=== PATIENT | male | born 1950 | race Caucasian/White ===

== ENCOUNTER 2021-11-29 13:47 | Inpatient (IN) | payer OTHER ==
[~2021-11-29] VITALS: Ht 177.8 cm; Wt 69.4 kg
[2021-11-29 14:41] LABS: BASOPHILS ABSOLUTE AUTO 0.07 K/mm3 (0.00-0.23); BASOPHILS PERCENT AUTO 0 % (0-2); EOSINOPHILS ABSOLUTE AUTO 0.01 K/mm3 (0.00-0.68); EOSINOPHILS PERCENT AUTO 0 % (0-6); Hematocrit 48.5 % (37.0-53.0); Hemoglobin 15.7 g/dL (13.5-17.5); IMMATURE GRAN ABSOLUTE AUTO 0.46 K/mm3 (0.00-0.10); IMMATURE GRAN PERCENT AUTO 2 % (0-1); LYMPHOCYTES ABSOLUTE AUTO 0.63 K/mm3 (0.84-5.20); LYMPHOCYTES PERCENT AUTO 3 % (21-46); MONOCYTES ABSOLUTE AUTO 1.07 K/mm3 (0.16-1.47); MONOCYTES PERCENT AUTO 6 % (4-13); Mean Corpuscular HGB 31.8 pg (26.0-34.0); Mean Corpuscular HGB Conc 32.4 g/dL (31.5-36.5); Mean Corpuscular Volume 98 fL (80-100); NEUTROPHILS PERCENT AUTO 88 % (41-73); Platelet Count 205 K/mm3 (150-400); RDW Coefficient Variation 13.1 % (11.7-14.2); RDW Standard Deviation 47.4 fL (35.1-46.3); Red Blood Cell Count 4.93 M/mm3 (4.30-5.90); White Blood Cell Count 18.94 K/mm3 (4.00-11.30)
[2021-11-29 14:43] LABS: Mean Platelet Volume 13.1 fL (9.1-12.4)
[2021-11-29 15:07] LABS: Creatine Kinase MB 85.4 ng/mL (0.0-3.6); Magnesium, Blood 4.5 mg/dL (1.6-2.4)
[2021-11-29 15:13] LABS: Ethanol (Alcohol), Blood, Med <3 mg/dL
[2021-11-29 15:29] LABS: Creatine Kinase MB Index 2.2 (0.0-4.0)
[2021-11-29 15:30] LABS: Albumin, Blood 3.2 g/dL (3.4-5.0); Albumin/Globulin Ratio 0.9 (0.8-1.8); Bilirubin, Total 0.6 mg/dL (0.1-1.0); Bun/Creatinine Ratio 27.5 (12.0-20.0); Globulin, Blood 3.6 g/dL (2.2-4.0); Total Protein, Blood 6.8 g/dL (6.4-8.2)
[2021-11-29 15:32] LABS: Base Excess Venous -22.9 mmol/L; Bicarbonate Venous 9.1 mmol/L (24.0-30.0); PCO2 Venous 32.8 mmHg (38-42); pH Blood Venous 7.01 (7.34-7.37)
[2021-11-29 15:44] LABS: International Normalized Ratio 1.07; Prothrombin Time Results 11.2 Sec (9.7-11.5)
[2021-11-29 17:02] LABS: Source, Urine Foley catheter
[2021-11-29 17:05] LABS: Appearance, Urine Clear (Clear); Bilirubin, Urine Neg (Neg); Blood, Urine 5+ (Neg); Color, Urine Yellow (P-Yellow); Glucose Qualitative, Urine 4+ (Neg); Ketones, Urine 3+ (Neg); Leukocyte Esterase, Urine Neg (Neg); Nitrite, Urine Neg (Neg); Protein, Urine Neg (Neg); Specific Gravity, Urine 1.015 (1.003-1.022); Urobilinogen, Urine NORM (Normal)
[2021-11-29 17:13] LABS: White Blood Cells, Urine 0-2 /hpf (0-5)
[2021-11-29 17:14] LABS: Bacteria Few /hpf; Hyaline Casts 0-2 /lpf (0-2); Red Blood Cells, Urine 0-2 /hpf (0-2); Squamous Epithelial Cells Not Seen /hpf (Few)
[2021-11-29 17:19] LABS: U Amphetamine Screen Not Detected; U Barbituate Screen Not Detected; U Benzodiazapine Screen Not Detected; U Buprenorphine Screen Not Detected; U Cannabinoids Screen Not Detected; U Cocaine Screen Not Detected; U Methadone Screen Not Detected; U Methamphetamine Screen Not Detected; U Opiates Screen Not Detected; U Oxycodone Screen Not Detected; U Phencyclidine Screen Not Detected; U Propoxyphene Screen Not Detected
[2021-11-29 18:43] LABS: Bun/Creatinine Ratio 27.9 (12.0-20.0); Calcium, Blood 8.3 mg/dL (8.5-10.1); Creatinine, Blood 3.69 mg/dL (0.60-1.20)
--- NOTE | 2021-11-29 18:50 | NUR ---
PT ARRIVED FROM ER AT 1735. TEMP 93.1, BEAR HUGGER APPLIED, MIDLINE PLACED IN LUE, ONE AMP BICARB PUSH GIVEN THEN FOLLOWED BY GTT, INSULIN RUNNING AT 7.33, NS STARTED AT 200ML/HR. PT UNRESPONSIVE TO VERBAL STIMULI, NOT OPENING EYES TO PAIN, PUPILS EQUAL BUT SLUGGISH. PT IS ONLY MAKING PURPOSEFUL MOVEMENTS WITH RUE. PT MOUTH IS DRY WITH CRUSTED BLOOD. RN WAS ABLE TO COLLAPSE ARTERIES WITH ULTRASOUND TRANSDUCER WITH LITTLE EFFORT. HR 130'S-140'S
--- NOTE | 2021-11-29 19:15 | NUR ---
ASSUMED CARE OF PT @0700. PT UNRESPONSIVE TO VERBAL STIMULI. GRIMACES DURING ASSESSMENT. SAGE HUGGER IN PLACE. NS 200MLS/HR. INSULIN 9 UNITS/HR. SODIUM BICARB 125MLS/HR. LOZANO CATH PATENT AND DRAINING TO GRAVITY. HR 140'S AFIB RHYTHM. RR 33, SPO2 >94% ON RA.
[2021-11-29 20:44] LABS: Glucose, Blood 743 mg/dL (70-99)
--- NOTE | 2021-11-29 21:22 | NUR ---
ATTEMPTED TO CALL SPOUSE WILLY. NO ANSWER AND CALL WAS SENT TO [employer] ANSWERING MACHINE. DID NOT LEAVE MESSAGE.
[2021-11-29 21:47] LABS: Bun/Creatinine Ratio 30.2 (12.0-20.0); Calcium, Blood 7.6 mg/dL (8.5-10.1); Creatinine, Blood 3.51 mg/dL (0.60-1.20); Potassium, Blood 3.6 mmol/L (3.5-5.5)
[2021-11-30 00:16] LABS: Bun/Creatinine Ratio 30.4 (12.0-20.0); Calcium, Blood 7.7 mg/dL (8.5-10.1); Creatinine, Blood 3.39 mg/dL (0.60-1.20); Potassium, Blood 3.7 mmol/L (3.5-5.5)
--- NOTE | 2021-11-30 01:25 | NUR ---
PT DESATING INTO THE 80'S, O2 4L VIA NC STARTED.
[2021-11-30 02:44] LABS: Base Excess Venous -1.4 mmol/L; Bicarbonate Venous 22.4 mmol/L (24.0-30.0); PCO2 Venous 42.7 mmHg (38-42); pH Blood Venous 7.36 (7.34-7.37)
--- NOTE | 2021-11-30 03:54 | NUR ---
PHONE CALL TO SPOUSE WILLY REGARDING PT CONDITION. NO ANSWER AND CALL SENT TO [employer] ANSWERING MACHINE. DID NOT LEAVE MESSAGE.
[2021-11-30 04:59] LABS: Hematocrit 36.2 % (37.0-53.0); Hemoglobin 12.7 g/dL (13.5-17.5); Mean Corpuscular HGB 31.1 pg (26.0-34.0); Mean Corpuscular HGB Conc 35.1 g/dL (31.5-36.5); Platelet Count 135 K/mm3 (150-400); RDW Coefficient Variation 12.6 % (11.7-14.2); RDW Standard Deviation 40.9 fL (35.1-46.3); Red Blood Cell Count 4.09 M/mm3 (4.30-5.90); White Blood Cell Count 1.55 K/mm3 (4.00-11.30)
[2021-11-30 05:19] LABS: Magnesium, Blood 2.7 mg/dL (1.6-2.4); Mean Corpuscular Volume 89 fL (80-100); Phosphorus, Blood 3.5 mg/dL (2.5-4.9)
[2021-11-30 06:00] LABS: BAND PERCENT MAN 28 % (0-8); BASOPHILS PERCENT MAN 0 % (0-2); EOSINOPHILS PERCENT MAN 0 % (0-6); LYMPHOCYTES ABSOLUTE MAN 0.12 K/mm3 (0.84-5.20); LYMPHOCYTES PERCENT MAN 8 % (21-46); METAMYELOCYTE ABSOLUTE MAN 0.03 K/mm3 (0.00-0.00); METAMYELOCYTE PERCENT MAN 2 % (0-0); MONOCYTES ABSOLUTE MAN 0.09 K/mm3 (0.16-1.47); MONOCYTES PERCENT MAN 6 % (4-13); MYELOCYTE ABSOLUTE MAN 0.03 K/mm3 (0.00-0.00); MYELOCYTE PERCENT MAN 2 % (0-0); NEUTROPHILS ABSOLUTE MAN 1.27 K/mm3 (1.96-9.15); SEG NEUTROPHILS PERCENT MAN 54 % (41-73); TOTAL CELLS COUNTED 50
[2021-11-30 06:18] LABS: Albumin/Globulin Ratio 0.8 (0.8-1.8); Bilirubin, Total 0.4 mg/dL (0.1-1.0); Bun/Creatinine Ratio 30.4 (12.0-20.0); Calcium, Blood 7.3 mg/dL (8.5-10.1); Creatinine, Blood 3.22 mg/dL (0.60-1.20); Globulin, Blood 2.6 g/dL (2.2-4.0); Potassium, Blood 4.1 mmol/L (3.5-5.5)
[2021-11-30 06:20] LABS: Total Protein, Blood 4.6 g/dL (6.4-8.2)
--- NOTE | 2021-11-30 07:43 | NUR ---
CARE OF PT ASSUMED AT 0700. PT IMMEDIATELY ASSESSED. PT MINIMALLY RESPONSIVE, DOES OPEN EYES TO VOICE, DOES NOT FOLLOW COMMANDS, VERY SOMNOLENT. LABORED BREATHING, RATE 40-50'S ON BIPAP. SATS AROUND 90% ON 90% FIO2. PT HYPOTENSIVE W MAP <60 ON 8MCG LEVOPHED. LEVOPHED TITRATED UP TO 20MCG OVER 30MIN TO KEEP MAP >65. DR DOMINIQUE CALLED AND UPDATED. CONSULT PLACED FOR CRITICAL CARE. DR ANN CALLED AND UPDATED. NS BOLUS STARTED, ALBUMIN AND VASOPRESSIN ORDERED. RT NOTIFED.
--- NOTE | 2021-11-30 09:40 | NUR ---
DR ANN AT BEDSIDE SOON AFTER CONSULT CALLED. PT INTUBATED AT 0759, ETT 8.0/25CM. RSI KIT USED. PT SEDATED WITH 4MG VERSED FOLLOWED BY PROPOFOL 60MG BY DR ANN AT 0757. AFTER INTUBATION PT ASYNCHRON. W VENT; ATIVAN 2MG AND FENT 100MCG ORDERED BY DR ANN AND PULLED ON OVERRIDE. VENT SETTINGS: 20/400/5/100%. OGT PLACED. CENTRAL LINE TO LEFT SC PLACED BY DR ANN W 3CM EXPOSED. CHEST XRAY TAKEN, ETT, OGT, AND CL VARIFIED BY DR ANN. PT REQUIRED UP TO 30MCG LEVOPHED TO KEEP MAP >65. VASOPRESSIN STARTED WELL ALBUMIN. 2L NS BOLUS GIVEN, TO BE FOLLOWED BY 3RD LITER. LEVOPHED NOW AT 12MCG, PROPOFOL AT 50MCG. DR DOMINIQUE AT BEDISDE AFTER INTUBATION AND GIVEN UPDATE. PT'S WILLY AT BEDSIDE AFTER INTUBATION AND GIVEN FULL UPDATE. PT GIVEN FULL BEDBATH, SKIN ASSESSED. PICTURES TAKEN OF BRUISE TO LEFT HIP AND FLANK AREA. SKIN OVERALL INTACT.
[2021-11-30 10:52] LABS: PCO2 Arterial 27.2 mmHg (35-45); PO2 Arterial 90.6 mmHg (80-100); pH Blood Arterial 7.35 (7.35-7.45)
--- NOTE | 2021-11-30 11:00 | NUR ---
UPDATE DR ANN GIVEN UPDATE. FOURTH NS BOLUS AND 25 ALBUMIN ORDERED. ABG'S RETURNED AND VENTILATOR SETTINGS WILL STAY.
[2021-11-30 12:22] LABS: Calcium, Blood 6.9 mg/dL (8.5-10.1); Creatinine, Blood 3.07 mg/dL (0.60-1.20); Potassium, Blood 4.2 mmol/L (3.5-5.5)
--- NOTE | 2021-11-30 13:03 | NUR ---
UPDATE 2MG OF ATIVAN GIVEN D/T TACHYPNEA (RATE 35'S~) AND INCREASED WORK OF BREATHING. PT RR IS NOW IN THE 20'S AND WORK OF BREATHING HAS GONE DOWN.
[2021-11-30 15:45] LABS: Influenza A, PCR NEGATIVE (NEGATIVE); Influenza B, PCR NEGATIVE (NEGATIVE); Resp Syncytial Virus, PCR NEGATIVE (NEGATIVE); SARS-Cov-2 (COVID-19) PCR, MMC NEGATIVE (NEGATIVE)
[2021-11-30 18:15] LABS: Calcium, Blood 6.8 mg/dL (8.5-10.1); Creatinine, Blood 2.66 mg/dL (0.60-1.20); Potassium, Blood 4.4 mmol/L (3.5-5.5)
--- NOTE | 2021-11-30 18:35 | NUR ---
SHIFT SUMMARY PT IS CURRENTLY INTUBATED AND SEDATED ON 50 OF PROPOFOL. LEVOPHED AT 6;VASOPRESSIN AT 0.04; BICARB PER ORDER. MAP IS >65 WITH OCCASIONAL DIPS BELOW 65 FOR THE FIRST HALF OF THE SHIFT WHILE ATTEMPTING TO MANAGE HIS BLOOD PRESSURE. WHILE ASSUMING CARE HE HAD A MAP OF 52; 5L NS BOLUS, 2 25MG OF ALBUMIN, AND PRESSORS TO MANAGE BLOOD PRESSURE. 2MG OF ATIVAN WAS USED TWICE TODAY TO HELP WITH RATE CONTROL HE WAS TACHYPNEIC FOR MOST OF THE MORNING. AFTER GETTING HIS MAP UP; HE HAD STOOL COMING OUT EVERY 2 HOURS THAT WAS PART LIQUID/HARD REGINA. RECTAL TUBE WAS PLACED.
--- NOTE | 2021-11-30 19:15 | NUR ---
ASSUMPTION OF CARE PT IS INTUBATED AND SEDATED. HE IS RECEIVING PROPOFOL 40MCG/KG/MIN, LEVOPHED 6MCG/MIN, VASOPRESSIN, AND BICARB 125ML/HR. VENT SETTINGS AC/VC 20/400/8/100%. RR 20-28. LUNGS CLEAR THROUGHOUT. OGT CLAMPED. BOWEL TONES HYPOACTIVE. RECTAL TUBE IN PLACE DRAINING SMALL AMOUNT OF LIQUID STOOL. LOZANO PATENT AND DRAINING DARK YELLOW URINE WITH SEDIMENT TO GRAVITY. SEE SHIFT ASSESSMENT.
[2021-12-01 00:49] LABS: Bun/Creatinine Ratio 35.5 (12.0-20.0); Calcium, Blood 6.5 mg/dL (8.5-10.1); Creatinine, Blood 2.34 mg/dL (0.60-1.20); Potassium, Blood 4.5 mmol/L (3.5-5.5)
--- NOTE | 2021-12-01 05:13 | NUR ---
SHIFT SUMMARY PT REMAINS INTUBATED WITH VENT SETTINGS AC/VC 20/400/8/50%. HE IS RECEIVING PROPOFOL 50MCG/KG/MIN, LEVOPHED 5MCG/MIN, VASOPRESSIN AND BICARB. NO ACUTE CHANGES OVER NIGHT. OGT CLAMPED. BOWEL TONES HYPOACTIVE. RECTAL TUBE HAS MINIMAL OUTPUT. LOZANO PATENT AND DRAINING TO GRAVITY. TITRATING LEVOPHED TO MAINTAIN MAP >65. WILL REPORT TO ONCOMING RN.
[2021-12-01 05:40] LABS: Hematocrit 29.5 % (37.0-53.0); Hemoglobin 10.5 g/dL (13.5-17.5); Mean Corpuscular HGB 32.4 pg (26.0-34.0); Mean Corpuscular HGB Conc 35.6 g/dL (31.5-36.5); Mean Corpuscular Volume 91 fL (80-100); Mean Platelet Volume 12.5 fL (9.1-12.4); Platelet Count 66 K/mm3 (150-400); RDW Coefficient Variation 13.7 % (11.7-14.2); RDW Standard Deviation 45.8 fL (35.1-46.3); Red Blood Cell Count 3.24 M/mm3 (4.30-5.90); White Blood Cell Count 8.61 K/mm3 (4.00-11.30)
[2021-12-01 06:25] LABS: Albumin/Globulin Ratio 0.8 (0.8-1.8); Bilirubin, Total 0.6 mg/dL (0.1-1.0); Bun/Creatinine Ratio 36.6 (12.0-20.0); Calcium, Blood 6.5 mg/dL (8.5-10.1); Creatinine, Blood 2.16 mg/dL (0.60-1.20); Globulin, Blood 2.4 g/dL (2.2-4.0); Phosphorus, Blood 3.4 mg/dL (2.5-4.9); Potassium, Blood 4.3 mmol/L (3.5-5.5); Total Protein, Blood 4.4 g/dL (6.4-8.2)
[2021-12-01 07:34] LABS: BAND PERCENT MAN 39 % (0-8); BASOPHILS PERCENT MAN 0 % (0-2); EOSINOPHILS PERCENT MAN 0 % (0-6); LYMPHOCYTES ABSOLUTE MAN 0.25 K/mm3 (0.84-5.20); LYMPHOCYTES PERCENT MAN 3 % (21-46); METAMYELOCYTE ABSOLUTE MAN 0.34 K/mm3 (0.00-0.00); METAMYELOCYTE PERCENT MAN 4 % (0-0); MONOCYTES ABSOLUTE MAN 0.25 K/mm3 (0.16-1.47); MONOCYTES PERCENT MAN 3 % (4-13); MYELOCYTE ABSOLUTE MAN 0.25 K/mm3 (0.00-0.00); MYELOCYTE PERCENT MAN 3 % (0-0); NEUTROPHILS ABSOLUTE MAN 7.49 K/mm3 (1.96-9.15); SEG NEUTROPHILS PERCENT MAN 48 % (41-73); TOTAL CELLS COUNTED 100
--- NOTE | 2021-12-01 08:15 | NUR ---
ASSUMED CARE PT INTUBATED ON /10/50% W/ SPO2 >92%; RR IN THE 20'S. PT WAS TAKEN OFF VASOPRESSIN LAST NIGHT AND IS TOLERATING 5MCG LEVOPHED; MAP >65 WITH 2 DIPS DOWN TO 60. BOWEL TONES REMAIN ABSENT WITH WEAK RADIAL PULSES AND STRONG PEDAL PULSES. PROPOFOL RUNNING AT 50MCG; BICARB AT 125ML.
--- NOTE | 2021-12-01 13:03 | NUR ---
PROPOFOL ON STANDBY, PT COUGHING ON VENT, ATTEMPTS TO OPEN EYES TO COMMAND. VERY WEAKLY CLAY DRY PRESS OPERATOR EACH HAND TO COMMAND. WIGGLES TOES TO COMMAND. UNABLE TO NOD HEAD TO QUESTIONS. PT GRIMACING. PROPOFOL RESTARTED AT 25MCG.
--- NOTE | 2021-12-01 13:56 | NUR ---
UPDATE IN ROOM AND HAD QUESTIONS ABOUT AN ADVANCED DIRECTIVE. NOTIFIED PALLIATIVE CARE, WHO WILL HAVE CONVERSATION WITH . SAID TO CALL HER ON CELL PHONE IF SHE LEAVES AND THAT SHE WILL LIKELY BE BACK WHEN THE SON COMES TO VISIT [facility]CTOR.
--- NOTE | 2021-12-01 14:22 | NUR ---
UPDATE IGNACIO WITH PALLIATIVE CARE IN TO TALK TO AND POLST WAS MADE W/ VERBAL APPROVAL WITH DR ANN. PT MADE DNR.
--- NOTE | 2021-12-01 14:34 | NUR ---
CHANGE in code status to DNR, per 's request. Visit made to bedside to meet with at her request for Palliative care to review and complete an advanced directive for her . Pt is currently intubated and unresponsive, unable to communicate. He was intubated by EMS either in the home or enroute to ER after being found down by . He is believed to have had aspirated emesis at home. I noted nonverbal indicators of discomfort, with frowning/furrowing of brow, grimacing. educated on nonverbal s/s to report if noted, ie increased restlessness, grimacing. educated on types advanced directives vs POLST for EMS. Explained that AD is an instrument to be filled out by someone who is alert, oriented & able to communicate/document their wishes. I offered to complete a POLST form with her if she would like, which she did. After review of advanced life support interventions and advanced care planning considerations we completed a POLST together. Pt has a hx of dementia, poor health and poor quality of life for some time now per . They have been for 20 years and as far as she knows he has not completed an advanced directive previously. I reviewed [place] statutes and our policy regarding proxy decision makers in the absence of an appointed, documented medical POA. states pt's son will be here tonight and she would like someone to review pt's current clinical status with him also. I told her our nurses or providers would be able to do that. states that her would probably not have chosen to be intubated and requests that if pt is able to be extubated that he not be reintubated. She requests that we not do CPR or attempt rescuscitation of any kind if his heart were to stop. She is waiting for pt's son to arrive to make any further decisions regarding the goals of care. She is clear that if pt is not able to regain respiratory or neurological function that pt will not be kept on life support. She has already discussed withdrawl of care with son but wants son to get full update on status and options before the two of them discuss this further. Report on my visit provided to pt's nurses and Dr Daley. VO obtained for DNR and entered. Planned with to f/u with her tomorrow.
--- NOTE | 2021-12-01 17:28 | NUR ---
SHIFT SUMMARY PT IN BED INTUBATED WITH PROPOFOL GTT @ 25MCGS; LEVOPHED @ 5MCG; BICARB+WATER @ 125MLS. MAP >65, SPO2 >92% ON 20/400/10/50%. WENT ON SEDATION VACATION AND WAS ABLE TO FOLLOW COMMANDS (SEE PT NOTE) WITH NATALIA BROWN. PRESSURES HAVE BEEN LABILE WITH LEVOPHED TITRATION, BUT HAVE MAINTAINED >65 WITH 3-5 DIPS DOWN TO 60-65 EARLY ON IN SHIFT WHEN VASOPRESSIN WAS FIRST TAKEN OFF AND LEVO TITRATED DOWN. HR IN THE 90S. FAMILY IN ROOM W/ PT AND HAS BEEN CONSULTED BY PALLIATIVE CARE. POLST WAS CREATED AND VERBAL ORDER FROM DR ANN TO MAKE PT DNR. LOZANO AND RECTAL TUBE PATENT AND DRAINING TO GRAVITY.
--- NOTE | 2021-12-01 19:15 | NUR ---
ASSUMPTION OF CARE PT REMAINS INTUBATED WITH VENT SETTINGS AC/VC+ 20/400/10/50%. HE IS RECEIVING PROPOFOL 25MCG/KG/MIN, LEVOPHED 5MCG/MIN AND BICARB 125ML/HR. OGT REMAINS CLAMPED. PENDING DIETARY CONSULT. BOWEL TONES HYPOACTIVE. RECTAL TUBE IN PLACE WITH SMALL AMOUNT OF DRAINAGE IN TUBE. LOZANO PATENT AND DRAINING UBALDO URINE WITH SEDIMENT. SEE SHIFT ASSESSMENT.
[2021-12-02 04:45] LABS: Hematocrit 29.4 % (37.0-53.0); Hemoglobin 10.2 g/dL (13.5-17.5); Mean Corpuscular HGB 31.6 pg (26.0-34.0); Mean Corpuscular HGB Conc 34.7 g/dL (31.5-36.5); Mean Corpuscular Volume 91 fL (80-100); Mean Platelet Volume 12.8 fL (9.1-12.4); RDW Standard Deviation 46.5 fL (35.1-46.3); Red Blood Cell Count 3.23 M/mm3 (4.30-5.90); White Blood Cell Count 8.75 K/mm3 (4.00-11.30)
[2021-12-02 05:02] LABS: Platelet Count 44 K/mm3 (150-400)
--- NOTE | 2021-12-02 05:25 | NUR ---
SHIFT SUMMARY PT REMAINS INTUBATED WITH VENT SETTINGS AC/VC+ 20/400/10/60%. HE IS RECEIVING PROPOFOL 25MCG/KG/MIN AND BICARB 125ML/HR. LEVOPHED CURRENTLY ON STANDBY WITH MAP >65. PT GRIMACES WITH NOXIOUS STIMULI, OCCASIONALLY OPENS EYES DURING CARE. EXTREMITIES WITHDRAW FROM PAINFUL STIMULI. NSR ON MONITOR WITH RATE 70S-80S. OGT REMAINS CLAMPED. ABDOMEN FIRM, BOWEL TONES HYPOACTIVE. RECTAL TUBE REMOVED THIS SHIFT DUE TO LACK OF OUTPUT. LOZANO PATENT AND DRAINING UBALDO URINE WITH SEDIMENT TO GRAVITY. SHIFT OUTPUT OF 1300ML. TMAX 100.3. POWERGLIDE REMAINS IN JERROD, CENTRAL LINE REMAINS L SUBCLAVIAN. WILL REPORT TO ONCOMING RN.
[2021-12-02 05:42] LABS: Albumin, Blood 1.7 g/dL (3.4-5.0); Anion Gap 7 mmol/L (6-16); Blood Urea Nitrogen 58 mg/dL (8-24); Bun/Creatinine Ratio 41.7 (12.0-20.0); CO2, Blood 32 mmol/L (21-32); CPK Creatine Kinase 2133 U/L (39-308); Calcium, Blood 7.4 mg/dL (8.5-10.1); Chloride, Blood 113 mmol/L (98-108); Creatinine, Blood 1.39 mg/dL (0.60-1.20); Glomerular Filtration Rate 54 (60-); Glucose, Blood 227 mg/dL (70-99); Phosphorus, Blood 2.2 mg/dL (2.5-4.9); Potassium, Blood 3.6 mmol/L (3.5-5.5); Sodium, Blood 152 mmol/L (136-145)
[2021-12-02 06:43] LABS: BAND PERCENT MAN 9 % (0-8); BASOPHILS PERCENT MAN 0 % (0-2); EOSINOPHILS PERCENT MAN 0 % (0-6); LYMPHOCYTES ABSOLUTE MAN 0.43 K/mm3 (0.84-5.20); LYMPHOCYTES PERCENT MAN 5 % (21-46); METAMYELOCYTE ABSOLUTE MAN 0.26 K/mm3 (0.00-0.00); METAMYELOCYTE PERCENT MAN 3 % (0-0); MONOCYTES ABSOLUTE MAN 0.08 K/mm3 (0.16-1.47); MONOCYTES PERCENT MAN 1 % (4-13); MYELOCYTE ABSOLUTE MAN 0.08 K/mm3 (0.00-0.00); MYELOCYTE PERCENT MAN 1 % (0-0); NEUTROPHILS ABSOLUTE MAN 7.87 K/mm3 (1.96-9.15); SEG NEUTROPHILS PERCENT MAN 81 % (41-73); TOTAL CELLS COUNTED 100
--- NOTE | 2021-12-02 07:00 | NUR ---
ASSUME CARE: I have assumed care of this patient.
--- NOTE | 2021-12-02 09:11 | NUR ---
FAMILY UPDATE: pt called and provided with update. She states she will be in later to visit.
--- NOTE | 2021-12-02 10:30 | NUR ---
Pt remains ventilated. He is unresponsive to voice or touch during visit. arrived while I was in the room. She said pt's son was able to speak with staff and Drs yesterday and get a good update. IDT meeting attended. Pt's kidney function improving. Clinical status Stable. Dr to start tube feedings today. Pt was able to follow commands with sedation vacation per RN progress notes. EMR reviewed. Will Follow up to be sure POLST was signed by and get copy to medical records today.
[2021-12-02 16:31] LABS: Bun/Creatinine Ratio 38.3 (12.0-20.0); Calcium, Blood 8.4 mg/dL (8.5-10.1); Creatinine, Blood 1.41 mg/dL (0.60-1.20); Potassium, Blood 3.5 mmol/L (3.5-5.5)
--- NOTE | 2021-12-02 16:43 | NUR ---
Pt's fully signed POLST sent to medical records for scanning into his EMR. has original completed yesterday.
--- NOTE | 2021-12-02 19:08 | NUR ---
SHIFT SUMMARY: NEURO: sedation vacation performed this AM. Pt did open his eyes; pupils PERRLA. RN unable to elicit movement from extremities prior to having to restart sedation for respiratory status. Pt grimaces and shruggs to painful stimuli. RESPIRATORY: coarse breath sounds on RLL. current vent settings AC/VC 400/20/10/70%. CARDIAC: sinus rhythm on monitor. Attempted to wean off levophed several times unsuccessfully. Levo currently at 2. GI/: tube feeds started at 25 mg/hr at 1600. pt required insulin coverage at 1800. No BM. Espinosa patent and draining to gravity. UOP 4875 mls. Fluid balance -2016. PSYCH/SOCIAL: and son at bedside throughout the day
--- NOTE | 2021-12-02 20:00 | NUR ---
ASSESSMENT/ASSUMED CARE PT INTUBATED AND ON KETTERING [facility] PREBLE VENT. SEDATED WITH PROPOFOL. LUNGS CLEAR BUT DECREASED IN THE BASES. VENT SETTING AC/VC 20/400/10/70%. SUCTIONED SMALL AMT WHITE THIN SECRECTIONS VIA ET TUBE. HEART RATE REGULAR IN THE 80'S. PT ON LEVOPHED AT 2 MCQ/MIN TO KEEP MAP GREATER THAN 65. INCREASED LEVOPHED TO 4 MCQ/MIN. CENTRAL LINE TO LEFT SUBCLAVIAN SITE CLEAR, DRSG INTACT. NS AT 10 ML/HR, LEVOPHED AT 4 MCQ/MIN AND PROPOFOL 25 MCQ/KG/MIN. POWER GLIDE TO LEFT UPPER ARM. SITE CLEAR AND DRSG INTACT. BT+ HYPOACTIVE. OG WITH TUBE FEED PIVOT 1.5 AT 25 ML/HR AND WATER 200 ML Q4HR. RESIDUAL 20 ML YELLOW SECRECTIONS REFED. LOZANO CATH PATENT DRAINING DARK YELLOW URINE. BILAT SOFT WRIST RESTRAINTS ON. PT INCONT OF STOOL. KONSTANTIN CARE DONE AND PT REPOSITIONED. ORAL CARE DONE.
--- NOTE | 2021-12-03 02:30 | NUR ---
TEMP TEMP UP TO 100.3. MED WITH TYLENOL AND ICE PACKS APPLIED. BED BATH DONE.
[2021-12-03 04:00] LABS: Hematocrit 31.2 % (37.0-53.0); Hemoglobin 10.5 g/dL (13.5-17.5); Mean Corpuscular HGB 30.9 pg (26.0-34.0); Mean Corpuscular HGB Conc 33.7 g/dL (31.5-36.5); Mean Corpuscular Volume 92 fL (80-100); RDW Coefficient Variation 13.7 % (11.7-14.2); RDW Standard Deviation 46.1 fL (35.1-46.3); White Blood Cell Count 2.08 K/mm3 (4.00-11.30)
[2021-12-03 04:06] LABS: Mean Platelet Volume 13.1 fL (9.1-12.4)
[2021-12-03 04:07] LABS: Platelet Count 37 K/mm3 (150-400)
[2021-12-03 04:35] LABS: Calcium, Blood 8.3 mg/dL (8.5-10.1); Creatinine, Blood 1.45 mg/dL (0.60-1.20); Phosphorus, Blood 2.4 mg/dL (2.5-4.9); Potassium, Blood 2.7 mmol/L (3.5-5.5)
--- NOTE | 2021-12-03 04:45 | NUR ---
LABS TALKED WITH DR PATEL REGARDING AM LABS, ORDER FOR KPHOS 30MMOL RECEIVED
--- NOTE | 2021-12-03 05:52 | NUR ---
BLOOD GLUCOSE CBG 425, 10 UNITS REGULAR INSULIN GIVEN. CALLED TO DR PATEL. ORDER TO INCREASE SLIDING SCALE INSULIN TO HIGH.
--- NOTE | 2021-12-03 06:11 | NUR ---
SHIFT SUMMARY PT CONT INTUBATED AND ON MECH VENT. NO VENT CHANGES DURING THE NIGHT. VENT SETTINGS AC/VC 20/400/10/70%. PT RECEIVING LASIX 80 MG IV Q8HR X3 DOSES. LUNGS COARSE BUT NO CRACKLES NOW. HEART RATE SINUS IN THE 70-80'S. PT ON LEVOPHED TITRATING TO KEEP MAP GREATER THAN 65, CURRENTLY LEVOPHED AT 4 MCQ/MIN. BT+ HYPOACTIVE. PT HAVING LOOSE INCONT STOOLS. OG WITH TUBE FEED PIVOT 1.5 AT GOAL RATE OF 40 ML/HR WITH WATER 200 ML Q4HR. LOZANO CATH PATENT DRAINING CLEAR YELLOW URINE. CENTRAL LINE TO LEFT SUBCLAVIAN DRSG INTACT, SITE CLEAR. POWER GLIDE TO LEFT UPPER ARM DRSG INTACT AND SITE CLEAR. KPHOS 30 MMOL INFUSING. INCREASED SLIDING SCALE INSULIN TO HIGH. BILAT SOFT WRIST RESTRAINTS ON. REPORT TO ON COMING NURSE
--- NOTE | 2021-12-03 07:30 | NUR ---
ASSUMED CARE: PT INTUBATED AND SEDATED. SEDATED WITH PROPOFOL AT 25MCG/KG/MIN. LEVOPHED GTT RUNNING AT 4MCG/KG. VENT SETTINGS AC 20/400/10/65%. CURRENTLY NSR AT 86. OG WITH TF AT GOAL. LOZANO CATH DRAINING CLEAR YELLOW URINE. NO ACUTE NEEDS AT THIS TIME.
--- NOTE | 2021-12-03 08:00 | NUR ---
ATTEMPTED SEDATION VACATION WITH PROPOFOL OFF. PT GRIMACED WITH NOXIOUS STIMULI, INCLUDING TRAPEZIUS SQUEEZE. NO PURPOSEFUL MOVEMENT. PROPOFOL RESTARTED WHEN PT STARTED STACKING BREATHS ON VENT.
--- NOTE | 2021-12-03 12:00 | NUR ---
PT CONTINUED TO HAVE AIR LEAK,. DR HARMON INSTRUCTED FOR TUBE EXCHANGE AND NEW XRAY TO CONFIRM PLACEMENT. TASK COMPLETED WITH RT ASSIST
[2021-12-03 14:20] LABS: Albumin, Blood 1.5 g/dL (3.4-5.0); Anion Gap 8 mmol/L (6-16); Blood Urea Nitrogen 59 mg/dL (8-24); Bun/Creatinine Ratio 42.8 (12.0-20.0); CO2, Blood 36 mmol/L (21-32); Calcium, Blood 8.5 mg/dL (8.5-10.1); Chloride, Blood 98 mmol/L (98-108); Creatinine, Blood 1.38 mg/dL (0.60-1.20); Glomerular Filtration Rate 54 (60-); Glucose, Blood 484 mg/dL (70-99); Potassium, Blood 3.7 mmol/L (3.5-5.5); Sodium, Blood 142 mmol/L (136-145)
--- NOTE | 2021-12-03 14:31 | NUR ---
PT'S CBGS CONTINUE TO BE ELEVATED. DISCUSSED WITH DR HARMON. SEE NEW ORDERS.
--- NOTE | 2021-12-03 18:05 | NUR ---
SHIFT SUMMARY: PT REMAINS ON VENT, AC 20/410/10/70%. ETT CHANGED DUE TO CUFF LEAKING. CUFF HAS SEEMED TO HAVE LEAKED ONCE SINCE CHANGING. DISCUSSED WITH RT. KARISED PER ORDERS TODAY WITH GOOD OUTPUT. REMAINS ON 25 MCG/KG OF PROPOFOL. NSR IN THE 70S. NO ACUTE NEEDS AT THIS TIME.
--- NOTE | 2021-12-03 18:52 | NUR ---
DR HARMON CAME TO BEDSIDE TO DO CARDIAC ULTRASOUND TO DETERMINE IF PT MAY HAVE PE DUE TO DIURESING WITH IMPROVEMENT TO XRAY BUT NOT O2 SATURATION. AFTER PERFORMING THIS, PT BEGAN STACKING BREATHS. DR INSTRUCTED FOR PRN MARCIA TO HELP WITH VENT COMPLIANCE AND STATED THAT PROPOFOL CAN BE INCREASED. PROPOFOL INCREASED TO 35MCG/KG AT THIS TIME.
--- NOTE | 2021-12-03 19:00 | NUR ---
ASSUMPTION OF CARE PT REMAINS INTUBATED WITH VENT SETTINGS AC/VC+ 20/560/12/70%. HE IS RECEIVING PROPOFOL 45MCG/KG/MIN AND LEVOPHED 5MCG/MIN. TUBE FEEDING INFUSING VIA OGT AT GOAL RATE. NSR ON MONITOR WITH RATE 80S. LOZANO PATENT AND DRAINING CLEAR/YELLOW URINE. SEE SHIFT ASSESSMENT.
--- NOTE | 2021-12-04 02:16 | NUR ---
UPDATE 1944: CORE TEMP 100.5. ICE PACKS PLACED AND TYLENOL ADMINISTERED PER EMAR. 2200: ICE PACKS REPLACED WITH NEW ICE. CORE TEMP 100.6. 0030: ICE PACKS REPLACED WITH NEW ICE. COOLING BLANKET IN PLACE. CORE TEMP 101.0 0130: CORE TEMP 101.9. ADMINISTERED 2ND DOSE OF TYLENOL PER EMAR. 0200: HOSPITALIST NOTIFIED. ORDER RECEIVED FOR IBUPROFEN AND ASPIRIN. HOSPITALIST AWARE OF PLATELET VALUE. PLAN TO DRAW BLOOD CULTURES.
--- NOTE | 2021-12-04 02:51 | NUR ---
SEDATION VACATION PROPOFOL ON STANBY FOR APPROX 6 HOURS. PT TOLERATED WELL. OCCASIONAL COUGH BUT COMPLIANT WITH VENT. PT ABLE TO OPEN EYES TO VERBAL STIMULI. HE DOES NOT TRACK MOVEMENTS. LIMBS REMAIN UNRESPONSIVE TO PAINFUL STIMULI. HR INCREASING TO 100S-110S. SEDATION RESTARTED. PROPOFOL INFUSING AT 45MCG/KG/MIN. WILL TITRATE DOWN PT TOLERATES.
[2021-12-04 04:36] LABS: Bun/Creatinine Ratio 42.8 (12.0-20.0); Calcium, Blood 8.9 mg/dL (8.5-10.1); Creatinine, Blood 1.52 mg/dL (0.60-1.20); Magnesium, Blood 1.8 mg/dL (1.6-2.4); Phosphorus, Blood 2.7 mg/dL (2.5-4.9); Potassium, Blood 2.6 mmol/L (3.5-5.5)
--- NOTE | 2021-12-04 06:10 | NUR ---
SHIFT SUMMARY PT REMAINS INTUBATED WITH VENT SETTINGS AC/VC+20/560/12/60%. HE IS RECEIVING LEVOPHED 7MCG/MIN. PROPOFOL ON STANDBY SINCE 0. PT IS ABLE TO OPEN EYES TO VERBAL STIMULI BUT DOES NOT FOLLOW ANY COMMANDS. LIMBS REMAIN UNRESPONSIVE TO PAINFUL STIMULI. HR 80S, NSR ON MONITOR. PIVOT INFUSING VIA OGT AT GOAL RATE WITH MINIMAL RESIDUALS THROUGHOUT SHIFT. ABDOMEN SOFT, BOWEL TONES ACTIVE. 1 SMALL UNFORMED STOOL THIS SHIFT. LOZANO PATENT AND DRAINING TO GRAVITY WITH SHIFT OUTPUT OF 2100ML. CBGS >350 THIS SHIFT, HOSPITALIST NOTIFIED. TMAX 101.9. CURRENT CORE TEMP 100.1. SUPPLEMENTAL KCL INFUSING AT THIS TIME. WILL REPORT TO ONCOMING RN.
--- NOTE | 2021-12-04 10:21 | NUR ---
ASSUMED CARE PT IS INTUBATED ON /12/60% WITH SPO2 >92%. MAP>65. PROPOFOL ON STANDBY, LEVOPHED AT 5MCG. PIVOT @ 40MLS W/ 200ML FLUSH Q4H. PT IS TOLERATING PROPOFOL ON STANBY AND IS VENTILATOR COMPLIANT WITH NO COUGHING/GAGGING. HYPOACTIVE BOWEL TONES. PT TEMP IS 100.7 PER LOZANO TEMP. LOZANO CATHETER DRAINING TO GRAVITY.
--- NOTE | 2021-12-04 11:41 | NUR ---
DR ODELL IN TO SEE PT, FULL UPDATE GIVEN. PLAN: KEEP PROPOFOL OFF FOR NOW, ALEXSANDER BY PT, DR ODELL WILL EVALUATE NEED FOR FREE WATER IT IS AT 200CC Q4HRS. DR ODELL DECREASED PEEP TO 8 AND FIO2 TO 50%. RT NOTIFIED. PT'S GIVEN UPDATE OVER PHONE.
[2021-12-04 16:05] LABS: Hematocrit 32.1 % (37.0-53.0); Hemoglobin 11.2 g/dL (13.5-17.5); Mean Corpuscular HGB 31.5 pg (26.0-34.0); Mean Corpuscular HGB Conc 34.9 g/dL (31.5-36.5); Mean Corpuscular Volume 90 fL (80-100); Platelet Count 58 K/mm3 (150-400); RDW Coefficient Variation 13.4 % (11.7-14.2); RDW Standard Deviation 44.6 fL (35.1-46.3); Red Blood Cell Count 3.56 M/mm3 (4.30-5.90); White Blood Cell Count 8.47 K/mm3 (4.00-11.30)
[2021-12-04 16:16] LABS: Bun/Creatinine Ratio 44.7 (12.0-20.0); Calcium, Blood 9.4 mg/dL (8.5-10.1); Creatinine, Blood 1.61 mg/dL (0.60-1.20); Magnesium, Blood 2.1 mg/dL (1.6-2.4); Phosphorus, Blood 1.6 mg/dL (2.5-4.9); Potassium, Blood 2.9 mmol/L (3.5-5.5)
[2021-12-04 17:48] LABS: BAND PERCENT MAN 2 % (0-8); BASOPHILS PERCENT MAN 0 % (0-2); EOSINOPHILS ABSOLUTE MAN 0.16 K/mm3 (0.00-0.68); EOSINOPHILS PERCENT MAN 2 % (0-6); LYMPHOCYTES ABSOLUTE MAN 0.76 K/mm3 (0.84-5.20); LYMPHOCYTES PERCENT MAN 9 % (21-46); MONOCYTES ABSOLUTE MAN 0.76 K/mm3 (0.16-1.47); MONOCYTES PERCENT MAN 9 % (4-13); NEUTROPHILS ABSOLUTE MAN 6.77 K/mm3 (1.96-9.15); SEG NEUTROPHILS PERCENT MAN 78 % (41-73); TOTAL CELLS COUNTED 100
--- NOTE | 2021-12-04 18:02 | NUR ---
SHIFT SUMMARY PT INTUBATED AND OFF SEDATION ON /5/50% WITH SPO2 >92%; MAP >65 ON 6MCG OF LEVOPHED. HR 90-100'S . PROPOFOL HAS BEEN OFF ALL DAY W/ NO ISSUES. T-MAX IS 101.8; 650MG OF TYLENOL AND ICE PACKS APPLIED. POWER GLIDE WAS PULLED D/T ISSUES W/ DRESSING CHANGE. CBG HAS BEEN IN THE 300'S. PT DOES NOT TRACK WITH EYES, BUT WILL OPEN/BLINK AND TURN HEAD TO VOICE. PT ALSO SQUEEZED FINGERS UPON REQUEST ONCE TODAY. LOZANO DRAINING TO GRAVITY.
--- NOTE | 2021-12-04 19:15 | NUR ---
ASSUMPTION OF CARE BEDSIDE REPORT RECEIVED FROM NATALIA RN AND TAMIKO RN. PT REMAINS INTUBATED WITH VENT SETTINGS AC/VC+ 20/560/5/50%. HE IS RECEIVING LEVOPHED 6MCG/MIN TO MAINTAIN MAP >65. PT OPENS EYES TO VERBAL STIMULI. OCCASIONALLY TURNS HEAD TOWARD MOVEMENT OR SOUND BUT DOES NOT TRACK MOVEMENTS TO COMMAND. FACIAL GRIMACING WITH NOXIOUS STIMULI. LIMBS ARE FLACCID, ONLY FACIAL GRIMACING TO PAINFUL STIMULI. LUNGS CLEAR IN UPPER LOBES, DIMINISHED AND COARSE IN BASES. COMPLIANT WITH VENT WITHOUT SEDATION. NSR ON MONITOR WITH RATE 80S-90S. TUBE FEEDING INFUSING VIA OGT AT GOAL RATE WITH FREE WATER FLUSHES. BOWEL TONES ACTIVE. LOZANO PATENT AND DRAINING CLOUDY YELLOW URINE TO GRAVITY. CORE TEMP 101.3. ICE PACKS AND FAN IN PLACE. SEE SHIFT ASSESSMENT.
[2021-12-05 04:27] LABS: Bun/Creatinine Ratio 53.7 (12.0-20.0); Calcium, Blood 8.1 mg/dL (8.5-10.1); Creatinine, Blood 1.34 mg/dL (0.60-1.20); Phosphorus, Blood 2.4 mg/dL (2.5-4.9); Potassium, Blood 3.1 mmol/L (3.5-5.5)
--- NOTE | 2021-12-05 04:53 | NUR ---
SHIFT SUMMARY PT REMAINS INTUBATED WITH VENT SETTINGS AC/VC+ 20/560/5/70%. LUNGS COARSE THROUGHOUT, DIMINISHED IN BASES. VENT COMPLIANT WITHOUT SEDATION. PT OPENS EYES SPONTANEOUSLY. OCCASIONAL HEAD MOVEMENTS TO TURN TOWARD VERBAL STIMULI. PT DOES NOT TRACK MOVEMENTS WITH EYES. PT WAS ABLE TO LIGHTLY SQUEEZE BILAT HANDS DURING MOST RECENT ASSESSMENT. UNABLE TO WIGGLE TOES. LOWER EXTREMITIES UNRESPONSIVE TO PAINFUL STIMULI. LEVOPHED INFUSING AT 4MCG/MIN TO MAINTAIN MAP >65. NSR ON MONITOR WITH RATE IN 80S. PIVOT TF INFUSING AT GOAL RATE WITH FREE WATER FLUSHES. BOWEL TONES ACTIVE, 1 MEDIUM UNFORMED BM THIS SHIFT. LOZANO PATENT AND DRAINING DARK YELLOW URINE TO GRAVITY WITH SHIFT OUTPUT OF 1550ML. CENTRAL LINE REMAINS IN PLACE. HOSPITALIST NOTIFIED OF AM LABS. PLAN TO INFUSE KCL. WILL REPORT TO ONCOMING RN.
[2021-12-05 05:17] LABS: PCO2 Arterial 30.5 mmHg (35-45); PO2 Arterial 50.9 mmHg (80-100)
[2021-12-05 05:18] LABS: pH Blood Arterial 7.64 (7.35-7.45)
--- NOTE | 2021-12-05 08:37 | NUR ---
ASSUMED CARE PT INTUBATED ON 450/5/70% W/ SPO2 >92%. MAP >65 ON 3MCG OF LEVOPHED. PROPOFOL ON SB. PIVOT @ 20MLS/HR AND 200ML FREE WATER FLUSH Q4H. PT IS ABLE TO SQUEEZE HANDS AND TRACK WITH EYES INTERMITTANTLY. PT MOVES TOES/FEET WITH BABINSKI TEST. DOES NOT COMMUNICATE WHEN ASKED TO SQUEEZE HANDS TO COMMUNICATE (SQUEEZE ONCE FOR YES, TWICE FOR NO). POTASSIUM INFUSING PER ORDER.
--- NOTE | 2021-12-05 11:41 | NUR ---
UPDATE PT DESATTED INTO THE 70S; RT AND DR TA NOTIFIED IMMEDIATELY; BOTH AT BEDSIDE SHORTLY AFTER. STAT X-RAY ORDERED AND COMPLETED. PEEP INCREASED TO 10; FIO2 INCREASED TO 100%. SPO2 NOW AT 86. PROPOFOL REINITIATED AT 50MCG.
--- NOTE | 2021-12-05 12:22 | NUR ---
DR ODELL AT BEDSIDE TO CHECK ON PT. SATS 90-93%, FIO2 DECREASED TO 90% BY DR ODELL. PROPOFOL REMIANS AT 50MCG. PT TO HAVE BILAT DOPPLER OF LE TO R/O DVT.
--- NOTE | 2021-12-05 17:16 | NUR ---
SHIFT SUMMARY PT IS INTUBATED AND SEDATED ON 35MCG OF PROPOFOL. SPO2 >92% ON 16/450/10/70%; MAP >65 W/ 5MCG OF LEVOPHED. PIVOT RUNNING AT GOAL RATE OF 40MLS/HR W/ 200ML FREE WATER FLUSH Q4H. PT DESATTED EARLY INTO SHIFT AND REQUIRED PROPOFOL TO BE REINITIATED (SEE PT NOTE UPDATE FOR DETAILS). PT GRIMACES W/ NOXIOUS STIMULI, BUT DOES NOT OPEN EYES OR FOLLOW COMMANDS. PROPOFOL WAS INITIATED AT 50MCG AND TITRATED DOWN TO 35.
[2021-12-06 04:26] LABS: Hematocrit 29.2 % (37.0-53.0); Hemoglobin 9.8 g/dL (13.5-17.5); Mean Corpuscular HGB 31.3 pg (26.0-34.0); Mean Corpuscular HGB Conc 33.6 g/dL (31.5-36.5); Mean Corpuscular Volume 93 fL (80-100); NRBC ABSOLUTE 0.02 K/mm3 (0.00-0.02); NRBC Auto 0.2 /100 WBC (0.0-0.2); Platelet Count 90 K/mm3 (150-400); RDW Coefficient Variation 13.9 % (11.7-14.2); RDW Standard Deviation 47.6 fL (35.1-46.3); Red Blood Cell Count 3.13 M/mm3 (4.30-5.90); White Blood Cell Count 12.78 K/mm3 (4.00-11.30)
[2021-12-06 04:29] LABS: Mean Platelet Volume 13.3 fL (9.1-12.4)
[2021-12-06 04:41] LABS: Bun/Creatinine Ratio 56.1 (12.0-20.0); Calcium, Blood 9.3 mg/dL (8.5-10.1); Creatinine, Blood 1.48 mg/dL (0.60-1.20); Magnesium, Blood 2.2 mg/dL (1.6-2.4); Phosphorus, Blood 2.7 mg/dL (2.5-4.9); Potassium, Blood 3.2 mmol/L (3.5-5.5)
--- NOTE | 2021-12-06 05:25 | NUR ---
END OF SHIFT SUMMARY NO ACUTE CHANGES OVERNIGHT. PT REMAINS ON PROOFOL AT 30 AND LEVO AT 5. FIO2 DOWN TO 60% NO OTHER VENT CHANGES. BG'S REMAIN IN THE HIGH 200 TO LOW 300'S. HE IS AT GOAL ON PIVOT 1.5 AT 4O. MAY NEED DIABETIC FORMULA DUE TO ELEVATED BG'S. BP SUPPORTED WITH LEVO @ 5 TO KEEP MAP GREATER THAN 65. RECTAL TUBE PLACED PT HAD CONSTANT OOZE OF LIQUID STOOL FROM RECTUM. COCCYX RED BUT BLANCHABLE HIGH RISK FOR BREAK DOWN. WILL CONTINUE TO MONITOR AND WILL GIVE BEDSIDE REPORT TO ONCOMING RN.
[2021-12-06 05:27] LABS: BAND PERCENT MAN 9 % (0-8); BASOPHILS PERCENT MAN 0 % (0-2); EOSINOPHILS ABSOLUTE MAN 0.25 K/mm3 (0.00-0.68); EOSINOPHILS PERCENT MAN 2 % (0-6); LYMPHOCYTES ABSOLUTE MAN 0.76 K/mm3 (0.84-5.20); LYMPHOCYTES PERCENT MAN 6 % (21-46); MONOCYTES ABSOLUTE MAN 0.51 K/mm3 (0.16-1.47); MONOCYTES PERCENT MAN 4 % (4-13); NEUTROPHILS ABSOLUTE MAN 11.24 K/mm3 (1.96-9.15); SEG NEUTROPHILS PERCENT MAN 79 % (41-73); TOTAL CELLS COUNTED 100
[2021-12-06 05:51] LABS: PCO2 Arterial 40.2 mmHg (35-45); PO2 Arterial 69.3 mmHg (80-100); pH Blood Arterial 7.51 (7.35-7.45)
--- NOTE | 2021-12-06 10:07 | NUR ---
ASSUMED CARE OF PT THIS AM PT. REMAINS SEDATED AND INTUBATED AT THIS TIME. PROPOFOL INFUSING AT 30MCG/KG/MIN. PT GRIMACES WITH ORAL CARE AND OCCASIONALLY OPENS EYES, NOT FOLLOWING COMMANDS AT THIS TIME. PT. TF INFUSING WITH FLUSH 200ML Q4 DECREASED TO Q6 PER DR[address] MOTT. INSULIN ORDERS ADJUSTED WELL WITH LONG ACTING INSULIN INCREASED. PT. HAS CENTRAL LINE TO LEFT CHEST WALL. PT. REMAINS ON LEVOPHED GTT AT 5MCG/MIN. PT. HAS LOZANO AND RECTAL TUBE DRAINING TO GRAVITY.
--- NOTE | 2021-12-06 16:43 | NUR ---
PROLONGED QTC NOTED WITH PM STRIP MEASUREMENT. DR. MOTT NOTIFIED. EKG DONE AND BLOOD WORK SENT PER DR. ANAYA.
[2021-12-06 17:05] LABS: Bun/Creatinine Ratio 49.7 (12.0-20.0); Calcium, Blood 8.8 mg/dL (8.5-10.1); Creatinine, Blood 1.67 mg/dL (0.60-1.20); Magnesium, Blood 2.3 mg/dL (1.6-2.4); Potassium, Blood 3.1 mmol/L (3.5-5.5)
--- NOTE | 2021-12-06 18:37 | NUR ---
SHIFT SUMMARY PT. REMAINS INTUBATED, SEDATION DECREASED TO 15MCG/KG/MIN. PT. OPENES EYES TO VERBAL STIMULIATION HOWEVER DOES NOT FOLLOW COMMANDS AT THIS TIME. PT LEVOPHED TITRATED DOWN TO 2MCG/MIN. POTASSIUM REPLACEMENT INFUSING. NO ACUTE CHANGES T/O SHIFT. CONTINUES WITH LIQUID STOOL AND LOZANO DRAINING TO GRAVITY. REPORT TO ONCOMING KEVIN
[2021-12-07 04:41] LABS: Hematocrit 26.4 % (37.0-53.0); Hemoglobin 8.8 g/dL (13.5-17.5); Mean Corpuscular HGB 31.2 pg (26.0-34.0); Mean Corpuscular HGB Conc 33.3 g/dL (31.5-36.5); Mean Corpuscular Volume 94 fL (80-100); NRBC ABSOLUTE 0.02 K/mm3 (0.00-0.02); NRBC Auto 0.1 /100 WBC (0.0-0.2); Platelet Count 99 K/mm3 (150-400); RDW Standard Deviation 48.2 fL (35.1-46.3); Red Blood Cell Count 2.82 M/mm3 (4.30-5.90); White Blood Cell Count 15.02 K/mm3 (4.00-11.30)
[2021-12-07 04:59] LABS: Bun/Creatinine Ratio 52.2 (12.0-20.0); Calcium, Blood 8.5 mg/dL (8.5-10.1); Creatinine, Blood 1.61 mg/dL (0.60-1.20); Potassium, Blood 3.2 mmol/L (3.5-5.5)
[2021-12-07 05:23] LABS: BAND PERCENT MAN 11 % (0-8); BASOPHILS PERCENT MAN 0 % (0-2); EOSINOPHILS PERCENT MAN 0 % (0-6); LYMPHOCYTES PERCENT MAN 2 % (21-46); MONOCYTES PERCENT MAN 2 % (4-13); NEUTROPHILS ABSOLUTE MAN 14.41 K/mm3 (1.96-9.15); SEG NEUTROPHILS PERCENT MAN 85 % (41-73); TOTAL CELLS COUNTED 100
--- NOTE | 2021-12-07 07:15 | NUR ---
TOOK OVER CARE OF PT AT 0700, PT HAS PROPOFOL INFUSING AT 25, LEVO AT 4 AND IS VENTED ON AC/VC 14/450/45%/5
--- NOTE | 2021-12-07 17:49 | NUR ---
SUMMARY NEURO: PT RECIEVED A LONG SEDATION VACATION. BRAIN STEM REFLEXES INTACT, PT OPENS EYES WITH NOISE. INTERMITTENT TRACKING WITH EYES. PUPILS SLUGGISH BUT EQUAL. PT DID NOT FOLLOW ANY COMMANDS, VERY LITTLE NON PURPOSEFUL MOVEMENT IN EXTREMETIES. GRIMACED TO PAIN IN ALL EXTREMETIES. PT THEN PLACED BACK ON 20 OF PROPOFOL FOR COMFORT. CARDIAC: PT REMAINED ON 4MCG OF LEVO THROUGHOUT SHIFT, PULSES PRESENT IN ALL EXTREMETIES. LUNGS: PT VENTED AC/VC 14/450/40%/5. GI: BOWEL SOUNDS HYPOACTIVE, TF RUNNING AT GOAL, RECTAL TUBE IN PLACE. : LOZANO IN PLACE, DRAINING TO GRAVITY.
--- NOTE | 2021-12-07 20:09 | NUR ---
CAME ON SHIFT PT BREATHING OVER VENT 40 + RESPIRATIONS A MIN AND SATS IN MID TO LOW 80'S. FEVER [address] MOTT CALLED AND ON HER WAY. ATIVAN ORDERED AND GIVEN. TYLENOL GIVEN. PT SHOWING SIGNS OF POSTURING FEVER JUMPED TO 103 DESPITE HAVING ICE PACKS ON ALL MAJOR ARTERIES AND OVER BODY. COOLING BLANKET PLACED WILL MONITOR. ON WAYL. NEW ORDERS PLACED BY DR. MOTT SEE ORDERS.
[2021-12-07 21:51] LABS: Source, Urine Foley catheter
[2021-12-07 21:57] LABS: Appearance, Urine Hazy (Clear); Bilirubin, Urine Neg (Neg); Blood, Urine 4+ (Neg); Color, Urine Yellow (P-Yellow); Glucose Qualitative, Urine 3+ (Neg); Ketones, Urine Neg (Neg); Leukocyte Esterase, Urine 1+ (Neg); Nitrite, Urine Neg (Neg); Protein, Urine 3+ (Neg); Specific Gravity, Urine 1.015 (1.003-1.022); Urobilinogen, Urine 2+ (Normal)
[2021-12-07 22:09] LABS: Amorphous Heavy (0-Heavy); Bacteria Few /hpf; Red Blood Cells, Urine 0-2 /hpf (0-2); Squamous Epithelial Cells Not Seen /hpf (Few)
[2021-12-07 22:55] LABS: C DIFFICILE DNA POSITIVE (Negative)
[2021-12-08 04:10] LABS: BASOPHILS ABSOLUTE AUTO 0.05 K/mm3 (0.00-0.23); BASOPHILS PERCENT AUTO 0 % (0-2); Hematocrit 27.4 % (37.0-53.0); Hemoglobin 9.2 g/dL (13.5-17.5); LYMPHOCYTES ABSOLUTE AUTO 0.59 K/mm3 (0.84-5.20); LYMPHOCYTES PERCENT AUTO 4 % (21-46); MONOCYTES ABSOLUTE AUTO 0.21 K/mm3 (0.16-1.47); MONOCYTES PERCENT AUTO 1 % (4-13); Mean Corpuscular HGB 31.5 pg (26.0-34.0); Mean Corpuscular HGB Conc 33.6 g/dL (31.5-36.5); Mean Corpuscular Volume 94 fL (80-100); Platelet Count 92 K/mm3 (150-400); RDW Coefficient Variation 14.3 % (11.7-14.2); RDW Standard Deviation 49.6 fL (35.1-46.3); Red Blood Cell Count 2.92 M/mm3 (4.30-5.90); White Blood Cell Count 15.73 K/mm3 (4.00-11.30)
[2021-12-08 04:14] LABS: EOSINOPHILS ABSOLUTE AUTO 0.07 K/mm3 (0.00-0.68); EOSINOPHILS PERCENT AUTO 0 % (0-6); IMMATURE GRAN ABSOLUTE AUTO 0.35 K/mm3 (0.00-0.10); IMMATURE GRAN PERCENT AUTO 2 % (0-1); NEUTROPHILS ABSOLUTE AUTO 14.46 K/mm3 (1.96-9.15); NEUTROPHILS PERCENT AUTO 92 % (41-73)
[2021-12-08 04:34] LABS: Bun/Creatinine Ratio 52.7 (12.0-20.0); Calcium, Blood 8.3 mg/dL (8.5-10.1); Creatinine, Blood 1.67 mg/dL (0.60-1.20); Magnesium, Blood 2.6 mg/dL (1.6-2.4); Phosphorus, Blood 3.4 mg/dL (2.5-4.9); Potassium, Blood 3.4 mmol/L (3.5-5.5)
--- NOTE | 2021-12-08 06:14 | NUR ---
END OF SHIFT SUMMARY AT BEGINING OF SHIFT PT WAS TACYPENIC OVERBREATHING THE VENT, ONLY RESPONSIVE TO PAIN, BP DECREASING, AND FEBRILE T-MAX OF 104. DR MOTT CAME INTO PT BEDSIDE SUSPECTING POSSIBLE ADVERSE REACTION TO NEW ABX MERROPENEM. ABX SWITCHED. STOOL AND URINE SAMPLES SENT TO LAB. PENDING RESULTS OF STOOL FOR POSSIBLE C-DIFF. PT OFF PROPOFOL USING PRN ATIVAN IV AND PRN IV FENTANYL TO MAINTAIN PT COMFORT. BACILIO DID COME TO BEDSIDE LAST NIGHT AND WILL BE BACK TODAY. PT HAS COOLING WRAPS ON THAT ASSISTED WITH FEVR REDUCTION ALSO GAVE TYELONL. PER DR. MOTT AT BEDSIDE HELD TF OVERNIGHT WITH PT CHANGE IN CONDITION AND POSSIBLE SEIZURE ACTIVITY. PT INITIALLY HAD INCREASE O2 DEMANDS REQUIRING 100% O2. HE IS NOW BACK TO 45% FIO2 AND PEEP OF 5. PT NORMOTHERMIC AT THIS TIME. WILL MONITOR. WILL GIVE BEDSIDE REPORT TO ONCOMING RN.
--- NOTE | 2021-12-08 07:07 | NUR ---
TOOK OVER CARE OF PT AT 0700. PT VENTED ON AC/VC 14/450/40%/5. PT NOT SEDATED OTHER THAN PRN PUSHES OF ATIVAN PER REPORT. 4MCG OF LEVO INFUSING, TEMP BLANKET SET ON AUTO REGULATE. TF STOPPED AT THIS TIME.
--- NOTE | 2021-12-08 18:34 | NUR ---
SUMMARY NEURO: PT ABLE TO SHRUG SHOULDERS TO COMMAND, INTERMITTENT TRTACKING WITH EYES, NO PAIN RESPONSE IN BLE. PUPILS SLUGGISH. NOT SEDATED, ONE TIME DOSE OF ATIVAN GIVEN IN AM. CARDIAC: PT IN NSR, ON 6 OF LEVO, PULSES PRESENT. LUNGS: PT VENTED ON ACVC 450/14/40%/5, CLEAR UPPER LOBES, DIMINISHED BASES. : LOZANO IN PLACE. GI: RECTAL TUBE IN PLACE, TF RUNNING AT GOAL. CDIFF POSITIVE. ORAL VANC STARTED.
--- NOTE | 2021-12-08 19:09 | NUR ---
Assumed care. Report received from sean BROWN. Pt in bed, on ventilator, vent settings: AC/VC 14/450/5/40%. L/SC central line in place, wnl. Levophed infusing at 6 mcg/min, NS tko x2. TF at 40 ml/hr. Rectal tube in place. Espinosa catheter in place. VS stable att, will continue to monitor.
[2021-12-09 04:20] LABS: Hematocrit 31.7 % (37.0-53.0); Hemoglobin 10.4 g/dL (13.5-17.5); Mean Corpuscular HGB 30.4 pg (26.0-34.0); Mean Corpuscular HGB Conc 32.8 g/dL (31.5-36.5); Mean Corpuscular Volume 93 fL (80-100); Mean Platelet Volume 14.3 fL (9.1-12.4); Platelet Count 116 K/mm3 (150-400); RDW Coefficient Variation 14.6 % (11.7-14.2); RDW Standard Deviation 50.4 fL (35.1-46.3); Red Blood Cell Count 3.42 M/mm3 (4.30-5.90); White Blood Cell Count 10.09 K/mm3 (4.00-11.30)
[2021-12-09 04:40] LABS: Albumin/Globulin Ratio 0.2 (0.8-1.8); Bilirubin, Total 0.5 mg/dL (0.1-1.0); Bun/Creatinine Ratio 52.7 (12.0-20.0); Calcium, Blood 8.2 mg/dL (8.5-10.1); Creatinine, Blood 1.65 mg/dL (0.60-1.20); Magnesium, Blood 2.7 mg/dL (1.6-2.4); Phosphorus, Blood 3.2 mg/dL (2.5-4.9); Potassium, Blood 3.4 mmol/L (3.5-5.5)
[2021-12-09 05:23] LABS: BAND PERCENT MAN 2 % (0-8); BASOPHILS PERCENT MAN 0 % (0-2); EOSINOPHILS PERCENT MAN 1 % (0-6); LYMPHOCYTES PERCENT MAN 5 % (21-46); MONOCYTES PERCENT MAN 3 % (4-13); NEUTROPHILS ABSOLUTE MAN 9.18 K/mm3 (1.96-9.15); SEG NEUTROPHILS PERCENT MAN 89 % (41-73); TOTAL CELLS COUNTED 100
--- NOTE | 2021-12-09 06:43 | NUR ---
Shift summary. Pt continues on ventilator, no changes this shift. Pt more alert during shift. Opens eyes spontaneously, looks around room. Does not follow commands or make purposeful movements. Some extremity movement noted. No acut events overnight, see assessments for further details. Will continue to monitor and report off to dayshift RN.
--- NOTE | 2021-12-09 07:16 | NUR ---
ASSUME CARE: I have assumed care of this patient.
--- NOTE | 2021-12-09 19:00 | NUR ---
Assumed care. Report received from sean RN. Pt resting in bed, ventilated via ETT. Pt alert, not currently on any sedation, tracking movement but not responding to questions. Levophed infusing at 3 mcg/min, NS TKO x2. Rectal tube in place. Espinosa catheter in place. Vital signs stable at time of report. Will continue to monitor.
--- NOTE | 2021-12-09 19:03 | NUR ---
SHIFT SUMMARY: NEURO: sedation has been off all day. pt opens eyes spontaneously and tracks RN. He moves his right arm purposfully. LUE with decerebrate. BLE flexion to stimulation. One dose of PRN tylenol give for Tmax 100.7. CARDIAC: sinus rhythm. norepi currently at 3mcg/min RESPIRATORY: AC/VC 14/450/5/35% : Per respiratory therapy, pt failed SBT after five minues due to RR in 60s. GI/: rectal tube with 500mls liquid stool out today. Espinosa draining dark yellow urine. SKIN: coccyx wound redressed today. No new breakdown noted. PSYCH/SOCIAL: came by to visit this evening. Palliative care was unavailable. Pt's was tearful and upset that pt was not sedated. RN explained rationale to and expressed that it was positive pt was waking up. She left shortly after. Granddaughter and son also came by to play cello for pt at bedside.
[2021-12-10 04:23] LABS: BASOPHILS ABSOLUTE AUTO 0.02 K/mm3 (0.00-0.23); BASOPHILS PERCENT AUTO 0 % (0-2); Hematocrit 26.5 % (37.0-53.0); Hemoglobin 8.8 g/dL (13.5-17.5); Mean Corpuscular HGB 30.7 pg (26.0-34.0); Mean Corpuscular HGB Conc 33.2 g/dL (31.5-36.5); Mean Corpuscular Volume 92 fL (80-100); Platelet Count 122 K/mm3 (150-400); RDW Coefficient Variation 14.6 % (11.7-14.2); RDW Standard Deviation 49.4 fL (35.1-46.3); Red Blood Cell Count 2.87 M/mm3 (4.30-5.90); White Blood Cell Count 5.01 K/mm3 (4.00-11.30)
[2021-12-10 04:24] LABS: EOSINOPHILS ABSOLUTE AUTO 0.07 K/mm3 (0.00-0.68); EOSINOPHILS PERCENT AUTO 1 % (0-6); IMMATURE GRAN ABSOLUTE AUTO 0.08 K/mm3 (0.00-0.10); IMMATURE GRAN PERCENT AUTO 2 % (0-1); LYMPHOCYTES ABSOLUTE AUTO 0.73 K/mm3 (0.84-5.20); LYMPHOCYTES PERCENT AUTO 15 % (21-46); MONOCYTES ABSOLUTE AUTO 0.39 K/mm3 (0.16-1.47); MONOCYTES PERCENT AUTO 8 % (4-13); Mean Platelet Volume 13.6 fL (9.1-12.4); NEUTROPHILS ABSOLUTE AUTO 3.72 K/mm3 (1.96-9.15); NEUTROPHILS PERCENT AUTO 74 % (41-73)
[2021-12-10 04:45] LABS: Albumin, Blood 1.4 g/dL (3.4-5.0); Anion Gap 6 mmol/L (6-16); Blood Urea Nitrogen 83 mg/dL (8-24); Bun/Creatinine Ratio 54.6 (12.0-20.0); CO2, Blood 24 mmol/L (21-32); Calcium, Blood 8.2 mg/dL (8.5-10.1); Chloride, Blood 122 mmol/L (98-108); Creatinine, Blood 1.52 mg/dL (0.60-1.20); Glomerular Filtration Rate 48 (60-); Glucose, Blood 148 mg/dL (70-99); Phosphorus, Blood 2.6 mg/dL (2.5-4.9); Sodium, Blood 152 mmol/L (136-145)
--- NOTE | 2021-12-10 06:27 | NUR ---
Shift summary. Pt rested in bed throughout shift. Fi02 titrated up to 50% and back down to 40% during shift. Levophed infusing at 3 mcg/min. No acute events overnight. Lab results reported to Dr. Daley this am, no new orders. VS stable, see assessments for further details. Will continue to monitor and report off to dayshift RN.
--- NOTE | 2021-12-10 17:13 | NUR ---
0800 ASSUMED CARE HE HAS BEEN AWAKE WITH NO SEDATION WHILE INTUBATED. HE HAS A CENTRAL LINE TO LEFT SUBCLAVIAN... HE HAD LEVOPHED GOING AT 4MCG AN HR AND IV FLUIDS TKO ALONG WITH ABX GOING. HE HAS A LOZANO WITH GOOD YELLOW URINE OUT AND RECTAL TUBE WITH MOD AMOUNT OF STOOL OUT, SOFT AND BROWN. HE HAS HAD SOME SMEARING AROUND IT BUT IS CLEANED AND TURNED FREQUENTLY. HE HAD A HIGH TEMP OF 100.O F THIS AM. 1200.. HE IS STARTING ON WEAN AT NOON. HE HAS CONTINUED TO BE AWAKE BUT DOES NOT FOLLOW COMMANDS ASKED. ORAL CARE DONE DIRECTED ALONG WITH CBG AND COVERAGE. VS TABLE PT FEVER AT 99.6 AT IT LOW. 1700.. CONTINUED CARE PATIENT HAS BEEN ON VENT WEAN ALL DAY. HE HAS TOLERATED IT WELL. VS STABLE.. LEVOPHED OFF CURRENTLY AND MAP HOLDING AT 66. ABX GIVEN DIRECTED. HE HAS BEEN TURNED EVERY TWO HOURS NEVER ON HIS BACK DUE TO HIS COCCYX WOUND. WOUNDS TO HIS LEFT SHOULDER AND DRY AND SCABBED OVER AND OPEN TO AIR. HE HAS HAD HIS CHLORHEXIDINE BATH TODAY AND ALL LINENS CHANGED. HE CONTINUES TO HAVE CREAMY THICK SECRETIONS WHEN SUCTIONED DOWN ETT. ORAL SECRETIONS ARE CLEAR. WILL CONTINUE CARE DIRECTED.
--- NOTE | 2021-12-10 18:41 | NUR ---
END OF SHIFT REPORT.. PATIENT HAS BEEN ON A WEAN FROM THE VENT SINCE NOON TODAY AND IS TILL ON IT. HIS SECRETIONS ARE CREAMY/WHITE AND THICK.. HE HAS BEEN AWAKE ALL DAY WITH NO SEDATION GOING. HIS TEMP HAS GONE UP TO 100.6 F THIS EVENING. BP SYSTOLIC 101/45 WITH A CORRECTED MAP OF 64 WITH LEVOPHED OFF. PULSE 95 NSR. NO FAMILY CAME IN OR CALLED TODAY FOR UPDATES THUS FAR. RECTAL TUBE PUT LITTLE OUT BUT THERE WAS SOME SMALL SMEARS AROUND THE TUBE THAT WERE CLEANED UP AND CREAM APPLIED TO ANUS REGION. LOZANO PUTTING OUT GOOD AMOUNT OF URINE, YELLOW IN COLOR. COCCYX DRESSING INPLACE ON TOP OF PRESSURE ULCER SORE.. TEE PROMINENCES ARE PADDED ON HIPS WELL FOR PROTECTIONS. SCAB TO LEFT KENNEDY IN PLACE NO EXUDATE PRESENT. SCABS TO LEFT SHOULDER DRY AND OPEN TO AIR. WILL GIVE REPORT TO NEXT SHIFT TO RESUME CARE.
--- NOTE | 2021-12-10 19:00 | NUR ---
Assumed care. Report received from sean BROWN. Pt in bed, on ventilator. Rt at bedside, settings changed from spontaneous to AC/VC 14/450/5/40%. D5 infusing at 75 ml/hr, NS TKO. Rectal tube in place, saldaña in place. VS stable ATT. Will continue to monitor.
[2021-12-11 03:47] LABS: BASOPHILS ABSOLUTE AUTO 0.01 K/mm3 (0.00-0.23); BASOPHILS PERCENT AUTO 1 % (0-2); Hematocrit 21.6 % (37.0-53.0); Hemoglobin 7.1 g/dL (13.5-17.5); LYMPHOCYTES ABSOLUTE AUTO 0.48 K/mm3 (0.84-5.20); LYMPHOCYTES PERCENT AUTO 38 % (21-46); MONOCYTES PERCENT AUTO 16 % (4-13); Mean Corpuscular HGB 30.3 pg (26.0-34.0); Mean Corpuscular HGB Conc 32.9 g/dL (31.5-36.5); Mean Corpuscular Volume 92 fL (80-100); NRBC ABSOLUTE 0.02 K/mm3 (0.00-0.02); NRBC Auto 1.6 /100 WBC (0.0-0.2); Platelet Count 108 K/mm3 (150-400); RDW Coefficient Variation 14.9 % (11.7-14.2); RDW Standard Deviation 50.3 fL (35.1-46.3); Red Blood Cell Count 2.34 M/mm3 (4.30-5.90); White Blood Cell Count 1.26 K/mm3 (4.00-11.30)
[2021-12-11 03:57] LABS: EOSINOPHILS ABSOLUTE AUTO 0.04 K/mm3 (0.00-0.68); EOSINOPHILS PERCENT AUTO 3 % (0-6); IMMATURE GRAN ABSOLUTE AUTO 0.06 K/mm3 (0.00-0.10); IMMATURE GRAN PERCENT AUTO 5 % (0-1); NEUTROPHILS ABSOLUTE AUTO 0.47 K/mm3 (1.96-9.15); NEUTROPHILS PERCENT AUTO 37 % (41-73)
[2021-12-11 04:09] LABS: Albumin, Blood 1.8 g/dL (3.4-5.0); Anion Gap 6 mmol/L (6-16); Blood Urea Nitrogen 65 mg/dL (8-24); Bun/Creatinine Ratio 47.1 (12.0-20.0); CO2, Blood 23 mmol/L (21-32); Calcium, Blood 7.7 mg/dL (8.5-10.1); Chloride, Blood 118 mmol/L (98-108); Creatinine, Blood 1.38 mg/dL (0.60-1.20); Glomerular Filtration Rate 54 (60-); Glucose, Blood 160 mg/dL (70-99); Phosphorus, Blood 2.3 mg/dL (2.5-4.9); Potassium, Blood 2.9 mmol/L (3.5-5.5); Sodium, Blood 147 mmol/L (136-145)
--- NOTE | 2021-12-11 06:52 | NUR ---
Shift summary. Pt in bed, on ventilator, no changes to vent settings this shift. PRN fentanyl given, see emar for details. AM labs reported to Dr. Kay this am, orders obtained for Kphos and KCL, see emar. VS stable throughout shift, no acute events overnight. Will continue to monitor and report off to dayshift RN.
--- NOTE | 2021-12-11 08:32 | NUR ---
ASSUMED CARE REPORT FROM GALINDO BROWN AT 0700. PT INTUBATED. VENT SETTINGS CHANGED TO SPONT 10/5/40% SHORTLY AFTER SHIFT CHANGE. TV 400-500ML. LUNGS CLEAR. SMALL AMOUNT OF FREY SECRETIONS FROM ETT. COUGH/GAG/SWALLOW REFLEX. TOLERATING VENT WELL. SPONT OPENS EYES, TRACKS STAFF. DOES NOT FOLLOW COMMANDS. WITHDRAWS ALL EXT TO PAINFUL STIMULI. MARY. SR, RATE 80-90'S. BP STABLE. ABD ROUND, SOFT, NON TENDER. BT X 4. TUBE FEEDS AT GOAL, 40 ML/HR c 250 ML FLUSHES q4 HR. LOZANO PATENT, DRAINING YELLOW URINE TO GRAVITY. RECTAL TUBE IN PLACE. LIQUID BROWN STOOL OUT. SKIN FRAGILE, SEE SKIN AND WOUND ASSESSMENT. CVC TO LSC, DRESSING C/D/I. WILL CONTINUE TO MONITOR.
--- NOTE | 2021-12-11 15:52 | NUR ---
Spiritual care visit. Pt. is intubated and non responsive for most of the visits. Even when Pt. responds ocassionally, his eyes do not track. For most of the visit with the Pts. son, facilitated a life review and re-established rapport. Prayed for Pt. and the family. Son displays evidence of being aware of the Pts. condition. Pts. arrives mid-visit. Family displays evidence of understanding the nature of the Pts. condition, and should soon be making a decision to extubate. Verbalized gratitude for the spiritual care visit. Briefed the atending ICU nurse.
--- NOTE | 2021-12-11 17:42 | NUR ---
SHIFT SUMMARY PT EXTUBATED THIS SHIFT. PLACED ON 6L VIA NC. SHALLOW RESP, WEAK COUGH. ASSIST martina COLEMAN. NEURO STATUS UNCHANGED, MAKES EYE CONTANT, DOES NOT FOLLOW DIRECTIONS. MOVES ALL EXT. WITHDRAWS FROM PAIN. LUNGS COARSE, PRODUCTIVE COUGH. O2 SATS 90-93%. SR ON MONITOR, RATE 80'. BP STABLE. RECTAL TUBE REMOVED THIS SHIFT D/T DECREASED OUTPUT AND LEAKING. LOZANO PATENT, DRAINING UBALDO URINE c SEDIMENT TO GRAVITY. CVC TO LSC, DRESSING CHANGED. FAMILY AT BEDSIDE. DECISION MADE TO NOT REINTUBATE, CONTINUE FULL CARE. WILL CONTINUE TO MONITOR UNTIL REPORT TO ONCOMING NURSE.
[2021-12-12 03:22] LABS: Hematocrit 21.1 % (37.0-53.0); Hemoglobin 7.1 g/dL (13.5-17.5); Mean Corpuscular HGB Conc 33.6 g/dL (31.5-36.5); Mean Corpuscular Volume 92 fL (80-100); Mean Platelet Volume 12.5 fL (9.1-12.4); Platelet Count 100 K/mm3 (150-400); RDW Coefficient Variation 14.7 % (11.7-14.2); Red Blood Cell Count 2.29 M/mm3 (4.30-5.90); White Blood Cell Count 2.04 K/mm3 (4.00-11.30)
[2021-12-12 03:35] LABS: Albumin, Blood 1.4 g/dL (3.4-5.0); Anion Gap 5 mmol/L (6-16); Blood Urea Nitrogen 52 mg/dL (8-24); Bun/Creatinine Ratio 40.6 (12.0-20.0); CO2, Blood 22 mmol/L (21-32); Calcium, Blood 7.3 mg/dL (8.5-10.1); Chloride, Blood 119 mmol/L (98-108); Creatinine, Blood 1.28 mg/dL (0.60-1.20); Glomerular Filtration Rate 59 (60-); Glucose, Blood 153 mg/dL (70-99); Phosphorus, Blood 3.2 mg/dL (2.5-4.9); Potassium, Blood 3.8 mmol/L (3.5-5.5); Sodium, Blood 146 mmol/L (136-145)
[2021-12-12 03:48] LABS: BAND PERCENT MAN 12 % (0-8); BASOPHILS PERCENT MAN 0 % (0-2); EOSINOPHILS PERCENT MAN 0 % (0-6); LYMPHOCYTES ABSOLUTE MAN 0.16 K/mm3 (0.84-5.20); LYMPHOCYTES PERCENT MAN 8 % (21-46); MONOCYTES ABSOLUTE MAN 0.28 K/mm3 (0.16-1.47); MONOCYTES PERCENT MAN 14 % (4-13); MYELOCYTE ABSOLUTE MAN 0.08 K/mm3 (0.00-0.00); MYELOCYTE PERCENT MAN 4 % (0-0); SEG NEUTROPHILS PERCENT MAN 62 % (41-73); TOTAL CELLS COUNTED 50
--- NOTE | 2021-12-12 06:43 | NUR ---
EMD OF SHIFT SUMMARY PT IS ALERT BUT NON VOCAL HE MAKES EYE CONTACT WHEN SAYING NAME AND SMILES BUT NOT FOLLOWING COMMANDS. AT [facility] WAS PLACED TO GIVE PO MEDS IS AT 65 AND XRAY CONFERMED PLACEMENT. i WAS ABLE TO GIVE ALL PO MEDS ALTHOUGH LATE. PT HAD SIGNIFICANT ISSUES WITH BS AND NEED A TOTAL OF 2 AMPS OF D50 AND D5NS STARTED AND INCREASED TO 75 AND TUBE FEEDS STARTED BEFORE BS GOT ABOVE 100. LEVO HAD TO BE RESTARTED AT IS CURRENTLY RUNNING AT 4MCG AND MAP IS 69. HES HAS HAD 6 STOOLS OVERNIGHT LARGE C-DIFF BM. LOOKS LIKE HIS WOUND ON [place] IS A OPENED DTI THE SUROUNDING TISSUES IS DARK EULALIO. will report to oncoming power
--- NOTE | 2021-12-12 10:10 | NUR ---
ASSUMED CARE REPORT FROM AIDAN BROWN AT 0700. PT RESTING IN BED. MAKES EYE CONTACT, DOES NOT FOLLOW COMMANDS. GROSS MOVEMENT TO ALL EXT. NO PURPOSEFUL MOVEMENTS. MARY. GRIMACING. WITHDRAWS ALL EXT FROM PAIN. CLENCHES JAW c ORAL CARE. SR, RATE 90'S. LEVO PLACED ON STANDBY, GOAL MAP >60. LUNGS COARSE. WET COUGH, UNABLE TO COUGH UP SECRETIONS, SUCTIONED c [place]. DOBHOFF TO RIGHT NARE, 58 CM, XRAY TO VERIFY PLACEMENT. TUBE FEEDS PLACED ON STANDBY. LOOSE LIQUID STOOLS, RECTAL TUBE REPLACED. LOZANO PATENT, DRAINING UBALDO URINE c SEDIMENT TO GRAVITY. WILL CONTINUE TO MONITOR.
--- NOTE | 2021-12-12 12:16 | NUR ---
Spiritual Care Visit. Spouse arrives to visit Pt. Present for consult with Dr. Daley and ICU nurse Dafne. Stay with spouse as she communicates with Pts. son on speakerphone regarding making comfort care decisions. Son and Pts. Spouse verbally clarify they wish to begin comfort care at this time. Stay with spouse and facilitate a life review, read scipture and pray over Pt. Pts. spouse verbalizes gratitude for the spiritual care tht she has received, and requests this bindery machine operator remain available.
--- NOTE | 2021-12-12 13:52 | NUR ---
Spiritual Care Check in. Pt. is comfort care. Family are now gathering. Pts. son and stepdaughter are there to support the spouse. Give pastoral encouragement. Family verbalizes gratitude for the spiritual Check in..
--- NOTE | 2021-12-12 16:35 | NUR ---
Spiritual Care Visit. Discussed family options for EOL Care. Pt. is a . Education material is given to the family regarding home choices, and "what to expect." Before they depart, family will let the nursing staff know when they have made their choice.
--- NOTE | 2021-12-12 17:22 | NUR ---
SHIFT SUMMARY/COMFORT CARE FAMILY AT BEDSIDE. DECISION MADE TO PROCEED c COMFORT CARE THIS SHIFT. DOBHOFF REMOVED, O2 REMOVED. MEDICATED c MORPHINE AND ATIVAN ORDERED. PT APPEARS TO BE RESTING COMFORTABLY. WILL CONTINUE TO MONITOR UNTIL REPORT TO ONCOMING NURSE.
--- NOTE | 2021-12-12 20:57 | NUR ---
ASSUMED CARE OF PATIENT AT 1900. PATIENT ON COMFORT MEASURES, FAMILY AT BEDSIDE. PRN MEDICINE GIVEN PER EMAR. FAMILY UPDATED ON PLAN OF CARE
== END 2021-12-13 03:21 | DRG 870 ==
LOC: ER 13:47 → ICUW 16:41
PROVIDERS: Emergency Medicine; Family Medicine; Internal Medicine; Internal Medicine Critical Care Medicine; ADMIT Internal Medicine
PROC: 3E033XZ Introduction of Vasopressor into Peripheral Vein, Percutaneous Approach (ICD-10-PCS; principal; 2021-11-30)
PROC: 3E03329 Introduction of Other Anti-infective into Peripheral Vein, Percutaneous Approach (ICD-10-PCS; 2021-11-30)
PROC: 02HV33Z Insertion of Infusion Device into Superior Vena Cava, Percutaneous Approach (ICD-10-PCS; 2021-11-30)
PROC: 0BH18EZ Insertion of Endotracheal Airway into Trachea, Via Natural or Artificial Opening Endoscopic (ICD-10-PCS; 2021-11-30)
PROC: 5A1945Z Respiratory Ventilation, 24-96 Consecutive Hours (ICD-10-PCS; 2021-11-30)
PROC: 0B21XEZ Change Endotracheal Airway in Trachea, External Approach (ICD-10-PCS; 2021-12-03)
PROC: 5A1955Z Respiratory Ventilation, Greater than 96 Consecutive Hours (ICD-10-PCS; 2021-12-03)
DX: A41.53 Sepsis due to Serratia (principal); E11.10 Type 2 diabetes mellitus with ketoacidosis without coma; J96.01 Acute respiratory failure with hypoxia; R65.21 Severe sepsis with septic shock; J18.9 Pneumonia, unspecified organism; G92.8 Other toxic encephalopathy; M62.82 Rhabdomyolysis; N17.9 Acute kidney failure, unspecified; E87.0 Hyperosmolality and hypernatremia; D61.818 Other pancytopenia; A04.72 Enterocolitis due to Clostridium difficile, not specified as recurrent; Z51.5 Encounter for palliative care; Z66 Do not resuscitate; Z78.1 Physical restraint status; Z20.822 Contact with and (suspected) exposure to COVID-19; R57.1 Hypovolemic shock; E87.6 Hypokalemia; E83.39 Other disorders of phosphorus metabolism; E86.0 Dehydration; E78.00 Pure hypercholesterolemia, unspecified; G30.9 Alzheimer's disease, unspecified; R25.8 Other abnormal involuntary movements; F02.80 Dementia in other diseases classified elsewhere, unspecified severity, without behavioral disturbance, psychotic disturbance, mood disturbance, and anxiety; I10 Essential (primary) hypertension; E03.9 Hypothyroidism, unspecified; E87.5 Hyperkalemia; I48.91 Unspecified atrial fibrillation; K21.9 Gastro-esophageal reflux disease without esophagitis; Z98.890 Other specified postprocedural states; Z79.899 Other long term (current) drug therapy
CPT/HCPCS: 0241U; 31500; 36415; 36600; 51702; 70450; 71045; 72125; 74018; 76770; 80048; 80053; 80069; 81001; 82010; 82330; 82550; 82553; 82803; 82947; 83605; 83735; 83880; 84100; 84443; 84484; 85025; 85027; 85610; 85730; 87040; 87070; 87077; 87086; 87186; 87205; 87324; 87493; 93005; 93010; 93970; 94002; 94003; 94660; 94760; 96360-59; 99285-25; A9270; C1751; C9113; G0480; J0456; J0610; J0696; J0714; J1610; J1644; J1650; J1815; J1940; J1956; J2060; J2185; J2250; J2270; J2543; J2704; J3010; J3370; J3480; J7030; J7042; J7050; J7060; J7070; J7120; P9047